=== PATIENT | male | born 1980 | race Caucasian/White ===

== ENCOUNTER 2018-04-08 07:29 | Emergency (ER) | payer OTHER ==
[~2018-04-08] VITALS: Ht 195.6 cm; Wt 102.1 kg
[2018-04-08 08:26] LABS: URINE BILIRUBIN NEGATIVE (Negative); URINE BLOOD NEGATIVE (Negative); URINE CLARITY CLEAR; URINE COLOR YELLOW; URINE GLUCOSE-RANDOM NEGATIVE (Negative); URINE KETONES NEGATIVE (Negative); URINE LEUKOCYTES NEGATIVE (Negative); URINE NITRITE NEGATIVE (Negative); URINE PROTEIN NEGATIVE (Negative); URINE UROBILINOGEN 0.2 E.U./dl (0.2-1.0)
[2018-04-08] MEDS ORDERED: NORCO 5-325 TA1 EACH PO (08:46)
[2018-04-08] MEDS ORDERED: IBUPROFEN 800800 M1 PO (08:46)
[2018-04-08] MEDS ORDERED: FLEXERIL PO (08:46)
[2018-04-08 08:59] VITALS: BP 160/70
== END 2018-04-08 09:00 | disposition home or self-care (01) ==
LOC: M.ERS 07:29
PROVIDERS: Emergency Medicine Emergency Medical Services
DX: S39.012A Strain of muscle, fascia and tendon of lower back, initial encounter (principal); Z88.0 Allergy status to penicillin; X58.XXXA Exposure to other specified factors, initial encounter; Y93.89 Activity, other specified; Y92.89 Other specified places as the place of occurrence of the external cause; Y99.8 Other external cause status

== ENCOUNTER 2018-05-16 10:32 | Emergency (ER) | payer OTHER ==
[~2018-05-16] VITALS: Ht 182.9 cm; Wt 99.8 kg
[~2018-05-16 10:32] MED LIST: FLEXERIL PO; IBUPROFEN 800800 M1 PO; NORCO 5-325 TA1 EACH PO
[2018-05-16 10:37] VITALS: BP 142/98
[2018-05-16] MEDS ORDERED: CLEOCIN HCL300 MG PO (11:01)
== END 2018-05-16 11:21 | disposition home or self-care (01) ==
LOC: M.ERS 10:32
DX: J02.8 Acute pharyngitis due to other specified organisms (principal); B96.89 Other specified bacterial agents as the cause of diseases classified elsewhere; Z88.0 Allergy status to penicillin